=== PATIENT | female | born 1990 | race African-American/Black ===

== ENCOUNTER 2020-03-07 15:13 | Emergency (ER) | payer MEDICAID ==
[~2020-03-07] VITALS: Ht 165.1 cm; Wt 100.0 kg
[2020-03-07] MEDS ORDERED: ACETAMINOPHEN 325MG TABLET PO STA (15:56)
[2020-03-07] MEDS ORDERED: SODIUM CHLORIDE 0.9% 1,000 ML IV ONE (15:56)
[2020-03-07] MEDS ORDERED: METOCLOPRAMIDE HCL 10MG/2ML VIAL IV ONE (16:00)
[2020-03-07] MEDS ORDERED: DEXAMETHASONE 10 MG/ML VIAL IV ONE (16:00)
[2020-03-07 16:46] LABS: PROTHROMBIN TIME 10.7 sec (9.6-11.0)
[2020-03-07 16:50] LABS: CHLORIDE 104 mEq/L (98-107)
[2020-03-07 16:58] VITALS: BP 148/85
[2020-03-07 17:29] LABS: BASOPHILS % 0.6 % (0.0-2.0); HEMATOCRIT. 40.7 % (36.0-48.0); HEMOGLOBIN. 13.8 g/dL (12.0-16.0); LYMPHOCYTES % 30.7 % (20.0-50.0); MEAN CORPUSCULAR HEMOGLOBIN 30.6 pg (28.0-32.0); MEAN CORPUSCULAR VOLUME 90.3 fL (81.0-99.0); MEAN PLATELET VOLUME 8.4 fl (7.4-10.4); MONOCYTES % 10.7 % (2.0-8.0); PLATELET 304 x1000/uL (130-400); RED BLOOD CELL COUNT 4.51 mill/uL (4.2-5.4); RED CELL DISTRIBUTION WIDTH 13.6 % (11.6-14.6)
== END 2020-03-07 18:05 | disposition home or self-care (01) ==
LOC: ER 15:13
DX: R51 Headache (principal); I49.9 Cardiac arrhythmia, unspecified
CPT/HCPCS: 36415; 80053; 85025; 85610; 93005; 96361; 96374; 96375; 99284; J1100; J2765; J7030